=== PATIENT | female | born 1965 | race Caucasian/White ===

== ENCOUNTER → 2016-06-28 | Outpatient (CLI) | payer OTHER ==
[~2016-06-28] MED LIST: ADVIL200 MG PO
== END | disposition disaster alternative care site (69) ==
LOC: GRAD 13:56
DX: E06.3 Autoimmune thyroiditis (principal); R26.89 Other abnormalities of gait and mobility

== ENCOUNTER → 2016-07-22 | Outpatient (CLI) | payer OTHER ==
[2016-07-23 15:15] LABS: ANGIOTENSIN-CONVERTING ENZYME 22 U/L (4-60)
== END | disposition disaster alternative care site (69) ==
LOC: GLAB 07-20 14:08
PROVIDERS: Psychiatry & Neurology Neurology
DX: R53.83 Other fatigue (principal); R94.02 Abnormal brain scan

== ENCOUNTER → 2016-07-23 | Outpatient (CLI) | payer OTHER | END | disposition disaster alternative care site (69) | LOC: GRAD 11:21 | DX: R94.02 Abnormal brain scan (principal); G93.9 Disorder of brain, unspecified; M47.812 Spondylosis without myelopathy or radiculopathy, cervical region; M48.02 Spinal stenosis, cervical region | CPT/HCPCS: A9576 ==

== ENCOUNTER → 2016-07-26 | Outpatient (CLI) | payer OTHER ==
--- NOTE | ~2016-07-26 | OR ---
PATIENT'S NAME: CLARY MARSH [facility] AGE: 50 Y [address] ROOM: [place] [address] LOCATION: [facility] ADMIT DATE: 07/26/2016 OR/Procedure Report DISCHARGE DATE: FAMILY PHYSICIAN: Richy Vizcarra MD ATTENDING PHYSICIAN: Danilo Coyne SURGEON: Darrick Fatima CRNA [employer] GUIDE: DATE OF PROCEDURE: 07/26/2016 Diagnostic Lumbar Puncture PREOPERATIVE DIAGNOSIS: Diagnostic spinal tap. POSTOPERATIVE DIAGNOSIS: Diagnostic spinal tap. INDICATIONS: The patient was carefully questioned concerning recent history of anticoagulant use, denied any anticoagulants. She has been off ibuprofen for several days. The patient did have an MRI which was reviewed, no space- occupying lesions noted. 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 The patient denied any history of fevers or other neurological symptoms besides which was noted in the H and P. DESCRIPTION OF PROCEDURE: A spinal tap tray was used, lot #[id number], expires 2018-10/15. Sterile gloves and a fresh mask were used. Hands were washed immediately prior to the procedure. The patient was placed in a sitting position. Since opening and closing pressures were not needed or ordered, it was felt that this would help facilitate the lumbar puncture. The back was prepped in a sterile fashion after landmarks were noted. Betadine x3 was used. Sterile drape was placed over the back. 1% lidocaine was used to infiltrate into the skin and subcutaneous tissue in the area of L4-L5. A 24- gauge Sprotte needle was utilized. An introducer was placed 1st into the skin and ligaments, and then the Sprotte needle was placed secondly into the intrathecal space. No paresthesias nor discomfort were noted. Prior to performing the lumbar puncture, Lab was notified and they said they needed a total of 10-12 mL of CSF, one would be sent away, so vial 1 had 5 mL of clear cerebrospinal fluid, vial 2 had approximately 6.5 mL of clear spinal fluid, and vial #3 had 5 mL of clear cerebrospinal fluid. These were all collected well maintaining sterility and handed off to the nurse who labeled them with the patient identification as well as the number vial 1, 2, and 3. After we were done, the spinal needle was removed. The site was cleansed and a Band-Aid was placed. No other levels were attempted, it was an easy one-pass lumbar puncture. After specimens were collected, a sterile Band-Aid was applied to the puncture. The patient was asked to lay supine. The risks and benefits that were discussed prior to lumbar puncture included postdural puncture PATIENT'S NAME: CLARY MARSH [facility] AGE: 50 Y [address] ROOM: [place] [address] LOCATION: [facility] ADMIT DATE: 07/26/2016 OR/Procedure Report DISCHARGE DATE: FAMILY PHYSICIAN: Richy Vizcarra MD ATTENDING PHYSICIAN: Danilo Coyne headache, which was minimized by using a 24 Sprotte. Also signs and symptoms were discussed in depth and treatment. Also, nerve injury, infection, and bleeding were all discussed. The report was given to the registered nurse who assumed care. I visited the patient a second time to make sure she was doing well and she had no questions, concerns, or complaints, and she is aware that she can get a hold of me anytime should anything arise. ADONIS KRISHNAMURTHY/belkisl /[id number] d: 07/26/168 t: 07/28/16 0628, OPERATIVE SUMMARY
== END | disposition disaster alternative care site (69) ==
LOC: GPOC 09:00 → GRAD 09:00
PROC: 009U3ZX Drainage of Spinal Canal, Percutaneous Approach, Diagnostic (ICD-10-PCS; principal; 2016-07-26)
DX: R94.02 Abnormal brain scan (principal)

== ENCOUNTER → 2016-08-13 | Outpatient (CLI) | payer OTHER | END | disposition disaster alternative care site (69) | LOC: GRAD 07:05 | DX: G93.9 Disorder of brain, unspecified (principal); K76.9 Liver disease, unspecified ==

== ENCOUNTER → 2016-08-27 | Outpatient (CLI) | payer OTHER | END | disposition disaster alternative care site (69) | LOC: GLAB 12:48 | DX: G37.9 Demyelinating disease of central nervous system, unspecified (principal) ==